=== PATIENT | male | born 1935 | race Caucasian/White ===

== ENCOUNTER → 2016-07-28 | Outpatient (REF) | LOC: ZLAB.WCH 11:18 | DX: Z01.89 Encounter for other specified special examinations (principal) ==

== ENCOUNTER → 2016-08-10 | Outpatient (REF) ==
[2016-08-10 16:22] LABS: TOTAL IRON BINDING CAPACITY 275 ug/dL (261-462)
[2016-08-10 16:47] LABS: FERRITIN 101 ng/mL (18-464)
== END ==
LOC: ZLAB.WCH 15:55
PROVIDERS: Internal Medicine
DX: Z01.89 Encounter for other specified special examinations (principal)

== ENCOUNTER → 2016-10-08 | Outpatient (REF) | LOC: ZLAB.WCH 10:27 | DX: Z01.89 Encounter for other specified special examinations (principal) ==

== ENCOUNTER → 2017-04-01 | Outpatient (REF) | LOC: ZLAB.WCH 18:12 | DX: Z01.89 Encounter for other specified special examinations (principal) ==

== ENCOUNTER → 2017-12-09 | Outpatient (REF) ==
[2017-12-09 16:56] LABS: PSA-TOTAL 1.98 ng/mL (0-4)
[2017-12-09 17:01] LABS: THYROID STIMULATING HORMONE 3.31 uIU/mL (0.465-4.680)
== END ==
LOC: ZLAB.WCH 16:04
PROVIDERS: Internal Medicine
DX: Z01.89 Encounter for other specified special examinations (principal)
CPT/HCPCS: G0103

== ENCOUNTER 2020-07-20 08:18 | Inpatient (IN) | payer MEDICARE, BC ==
[~2020-07-20] VITALS: Ht 180.3 cm; Wt 82.5 kg
--- NOTE | 2020-07-20 10:00 | NUR ---
Pt arrived to medical unit room 318 at 0930. Oriented to room, admission assessments and med rec updated. 20G IV started to right AC. at bedside at this time.
[2020-07-20] MEDS ORDERED: NORVASC 10MG10 MG PO (10:20)
[2020-07-20] MEDS ORDERED: CALCITRIOL PO (10:21)
[2020-07-20] MEDS ORDERED: KLONOPIN 0.5MG0.5 MG PO (10:21)
[2020-07-20] MEDS ORDERED: CATAPRES-TTS 30.3 MG TD (10:22)
[2020-07-20] MEDS ORDERED: CYANOCOBAL1000 MCG/1 IM (10:23)
[2020-07-20] MEDS ORDERED: LASIX 20MG TABL20 MG PO (10:24)
[2020-07-20] MEDS ORDERED: AMARYL 2MG T2 MG/TAB PO (10:24)
[2020-07-20] MEDS ORDERED: TOPROL XL 25MG25 MG PO (10:25)
[2020-07-20] MEDS ORDERED: PROBIOTIC BLEN1 EACH PO (10:26)
[2020-07-20] MEDS ORDERED: CRESTOR20 MG PO ×2 (10:27→10:28)
[2020-07-20] MEDS ORDERED: TEMOVATE0.05% TP (10:29)
[2020-07-20] MEDS ORDERED: ZOLOFT 50MG50 MG PO (10:29)
[2020-07-20 10:37] VITALS: BP 166/70; PULSE 68; TEMP 98
[2020-07-20 11:26] LABS: BASO # 0.1 (0.0-0.2); BASO % 1.1 % (0.0-2.0); EOS # 0.1 (0.0-0.7); EOS % 1.7 % (0-4.0); GRAN # 3.7 (1.4-6.5); GRAN % 68.9 % (42.2-75.2); HEMATOCRIT 26.1 % (42.0-52.0); HEMOGLOBIN 8.5 g/dl (13.5-18.0); LYMPH # 1.2 (1.2-3.4); LYMPH % 21.5 % (20.0-51.0); MEAN CELL VOLUME 90 fl (80.0-100.0); MEAN CORPUSCULAR HEMOGLOBIN 29 pg (27.0-31.0); MEAN CORPUSCULAR HGB CONC 33 g/dl (33.0-37.0); MEAN PLATELET VOLUME 10.1 fl (7.4-10.4); MONO # 0.4 (0.1-0.6); MONO % 6.6 % (1.7-9.3); PLATELET COUNT 178 K/mm3 (130-400); RED BLOOD COUNT 2.91 M/mm3 (4.20-5.60); REDCELL DISTRIBUTION WIDTH-CV 14.4 % (11.5-14.5)
[2020-07-20 11:28] LABS: INR 1.1 (0.8-3.0); PROTHROMBIN TIME 12.3 SECONDS (9.7-12.8)
[2020-07-20 11:31] LABS: ALBUMIN 3.6 gm/dL (3.5-5.0); BILIRUBIN,TOTAL 0.2 mg/dL (0.0-1.0); CALCIUM 6.6 mg/dL (8.4-10.2); CREATININE, serum 8.46 (0.66-1.25); POTASSIUM 4.9 mmol/L (3.4-5.0); TOTAL PROTEIN 6.8 gm/dL (6.4-8.2)
--- NOTE | 2020-07-20 13:36 | NUR ---
Tuberculin PPD 5 units to left forearm with wheal formation. Pt. denies knowledge of any TB exposure; reports no known family members w/TB. Reports does not remember ever having a TB skin test in past. Acknowledges was in the .
[2020-07-20 13:47] VITALS: BP 160/64
[2020-07-20 15:39] VITALS: BP 157/57; PULSE 61; TEMP 98
[2020-07-20 19:27] VITALS: BP 160/60; PULSE 66; TEMP 97.6
--- NOTE | 2020-07-20 20:00 | NUR ---
Assessment complete. Patient is alert and oriented with no complaints of pain. Bilater lower extremity edema is present and is non-pitting. Lungs are clear, HR normal/regular. Abdomen is rounded with audible bowel sounds. Bumex gtt infusing into right a/c IV. Patient states he has had a "rash" all over his body for 7 months that is getting better and which doctors are aware of; Healing rash is observed on patient's left morrison and forearm, back of head and on various other areas of the body; Patient states it is itchy at times. LUE is restricted with pink band. Call light in reach.
[2020-07-20 23:25] VITALS: BP 156/58; PULSE 64; TEMP 97.8
[2020-07-21] VITALS (9 sets, daily range): BP systolic 165–193; BP diastolic 67–76; PULSE 60–77; TEMP 97.2–98.4
--- NOTE | 2020-07-21 03:11 | NUR ---
Received report from [employer].
--- NOTE | 2020-07-21 06:19 | NUR ---
Patient had been asleep most of the night. He would call if he needs to go to the bathroom. Bumex drip infusing at 5ml/hr.
[2020-07-21 06:20] LABS: BASO % 0.6 % (0.0-2.0); EOS # 0.1 (0.0-0.7); GRAN # 4.8 (1.4-6.5); GRAN % 69.7 % (42.2-75.2); LYMPH # 1.4 (1.2-3.4); LYMPH % 20.9 % (20.0-51.0); MEAN CELL VOLUME 89 fl (80.0-100.0); MEAN CORPUSCULAR HGB CONC 33 g/dl (33.0-37.0); MEAN PLATELET VOLUME 10.5 fl (7.4-10.4); MONO # 0.5 (0.1-0.6); MONO % 7.5 % (1.7-9.3); PLATELET COUNT 201 K/mm3 (130-400); RED BLOOD COUNT 3.12 M/mm3 (4.20-5.60); REDCELL DISTRIBUTION WIDTH-CV 14.3 % (11.5-14.5)
[2020-07-21 06:21] LABS: HEMATOCRIT 27.9 % (42.0-52.0); HEMOGLOBIN 9.1 g/dl (13.5-18.0); MEAN CORPUSCULAR HEMOGLOBIN 29 pg (27.0-31.0)
[2020-07-21 06:31] LABS: ALBUMIN 3.5 gm/dL (3.5-5.0); CALCIUM 6.6 mg/dL (8.4-10.2); CREATININE, serum 8.16 (0.66-1.25); PHOSPHOROUS 8.3 mg/dL (2.5-4.5); POTASSIUM 4.5 mmol/L (3.4-5.0)
--- NOTE | 2020-07-21 12:45 | NUR ---
Manager Placement met with patient to discuss discharge planning. Patient lives alone in [place] and sees Dr. Veras for primary care. Patient obtains medications from [facility] with no difficulties and does not use any DME. Patient states he has DPOA-HC completed which designates his son, Jagjit and his grandson, Hari (ph#[phone]). Patient states his girlfriend, Dee Llanos will be bringing a copy in later today. Patient reports he is normally independent with ADLS. PT/OT have been ordered for patient. SW contacted patient's son, Hari to review discharge plan. Hari has no questions or concerns at this time. Discharge plan will be to return home.
--- NOTE | 2020-07-21 14:00 | NUR ---
Primary nurse was assisted with [id number] patient care by [employer] ADM student Mirna Hutchison and [employer] AD[employer] instructor Jenny Cruz MSN, RN.
--- NOTE | 2020-07-21 20:00 | NUR ---
Assessment complete. PAtient is alert and oriented with no complaints of pain. He has a left upper extremity restriction for fisutla placement tomorrow. Bilateral lower extremity edema is noted but is mild and non-pitting. Lung sounds clear, abdomen is soft. No new concerns. Call light in reach.
[2020-07-22] VITALS (13 sets, daily range): BP systolic 135–185; BP diastolic 54–74; PULSE 56–71; TEMP 98–99
--- NOTE | 2020-07-22 06:08 | NUR ---
Patient's BG is 60 at this time. Patient provided with apple juice. Will recheck in 15 minutes. Patient is asymptomatic of hypogylemia.
[2020-07-22 06:22] LABS: BASO % 0.5 % (0.0-2.0); EOS # 0.1 (0.0-0.7); EOS % 0.8 % (0-4.0); GRAN # 4.3 (1.4-6.5); GRAN % 64.4 % (42.2-75.2); LYMPH # 1.7 (1.2-3.4); LYMPH % 25.2 % (20.0-51.0); MEAN CELL VOLUME 89 fl (80.0-100.0); MEAN CORPUSCULAR HGB CONC 33 g/dl (33.0-37.0); MEAN PLATELET VOLUME 10.5 fl (7.4-10.4); MONO # 0.6 (0.1-0.6); MONO % 8.9 % (1.7-9.3); PLATELET COUNT 200 K/mm3 (130-400); RED BLOOD COUNT 3.15 M/mm3 (4.20-5.60); REDCELL DISTRIBUTION WIDTH-CV 14.2 % (11.5-14.5)
[2020-07-22 06:25] LABS: HEMOGLOBIN 9.3 g/dl (13.5-18.0); MEAN CORPUSCULAR HEMOGLOBIN 30 pg (27.0-31.0)
--- NOTE | 2020-07-22 06:31 | NUR ---
BG NOW 78. PATIENT DOES NOT FEEL ANY SYMPTOMS OF HYPOGLYCEMIA.
[2020-07-22 06:40] LABS: ALBUMIN 3.4 gm/dL (3.5-5.0); CALCIUM 7.2 mg/dL (8.4-10.2); CREATININE, serum 8.08 (0.66-1.25); PHOSPHOROUS 7.5 mg/dL (2.5-4.5); POTASSIUM 4.5 mmol/L (3.4-5.0)
--- NOTE | 2020-07-22 10:07 | NUR ---
Initial visit; Patient and his thanked Corporate Controller for stopping and offering spiritual care.
--- NOTE | 2020-07-22 12:32 | NUR ---
Patient went down for fistula placement at 1130. Souleymane almazan.
--- NOTE | 2020-07-22 14:00 | NUR ---
Primary nurse was assisted with [id number] patient care by [facility] Hutchison and [facility] instructor Jenny Cruz MSN, RN.
--- NOTE | 2020-07-22 17:26 | NUR ---
Patient tolerated his 1st HD tx today, no fluid removal. Next planned HD tx for tomorrow, Saturday07/23/20 with no scheduled time as of now.
--- NOTE | 2020-07-22 19:34 | NUR ---
Patient had dialysis cath and a fistula placed today. Patient had dialysis following procedure. Tolerated well, no fluid pulled. Patient is resting in bed at this time. Patient does not C/O any pain or discomfort at this time. Call light within reach.
[2020-07-22 21:41] LABS: HEPATITIS B SURFACE ANTIBODY <2.0 (()); HEPATITIS B SURFACE ANTIGEN Negative (Negative); HEPATITIS C VIRUS ANTIBODY Negative (Negative)
--- NOTE | 2020-07-23 01:22 | NUR ---
1999- ASSESSMENT COMPLETE. POC DISCUSSED. FISTUAL AND DIAYLSIS CATH PLACED TO DAY . PT DENIES ANY PAIN OR DISCOMFORT. UP AMBULATING IN ROOM. PM MEDS REVIEWED. NEEDS MET.
[2020-07-23 03:45] VITALS: BP 120/53; PULSE 64; TEMP 99.3
--- NOTE | 2020-07-23 06:05 | NUR ---
RESTED THROUGH THE NIGHT WITHOUT INCIDENT. SISTER CALLS FOR UPDATE THIS AM. NEEDS MET.
[2020-07-23 06:59] LABS: BASO # 0.1 (0.0-0.2); BASO % 0.8 % (0.0-2.0); EOS # 0.2 (0.0-0.7); EOS % 3.1 % (0-4.0); GRAN # 4.5 (1.4-6.5); LYMPH # 1.2 (1.2-3.4); MEAN CELL VOLUME 90 fl (80.0-100.0); MEAN CORPUSCULAR HGB CONC 33 g/dl (33.0-37.0); MEAN PLATELET VOLUME 10.5 fl (7.4-10.4); MONO # 0.5 (0.1-0.6); MONO % 7.8 % (1.7-9.3); PLATELET COUNT 196 K/mm3 (130-400); RED BLOOD COUNT 3.09 M/mm3 (4.20-5.60); REDCELL DISTRIBUTION WIDTH-CV 14.4 % (11.5-14.5)
[2020-07-23 07:00] LABS: HEMATOCRIT 27.7 % (42.0-52.0); MEAN CORPUSCULAR HEMOGLOBIN 29 pg (27.0-31.0)
[2020-07-23 07:04] LABS: ALBUMIN 3.2 gm/dL (3.5-5.0); CALCIUM 7.2 mg/dL (8.4-10.2); CREATININE, serum 6.55 (0.66-1.25); PHOSPHOROUS 6.2 mg/dL (2.5-4.5); POTASSIUM 4.6 mmol/L (3.4-5.0)
--- NOTE | 2020-07-23 07:07 | NUR ---
Patient resting in bed at this time. Does not C/O any pain or discomfort. Patient denies any needs. Will continue to monitor. Call light within reach.
[2020-07-23 07:17] VITALS: BP 157/69; PULSE 73; TEMP 98.8
--- NOTE | 2020-07-23 11:04 | NUR ---
Patient resting in his chair at this time. Patient's girlfriend will be at the bedside shortly. Dialysis scheduled for 1430 today. Patient denies any pain, discomfort, or needs at this time. Will continue to monitor. Call light within reach.
[2020-07-23 11:08] VITALS: BP 135/69; PULSE 71; TEMP 98.3
--- NOTE | 2020-07-23 15:13 | NUR ---
DC'd right AC IV per doctors orders. Patient transported via wheelchair to dialysis.
[2020-07-23 19:47] VITALS: BP 173/60; PULSE 70; TEMP 98.2
[2020-07-23 23:13] VITALS: BP 126/52; PULSE 67; TEMP 98.4
[2020-07-24 03:54] VITALS: BP 122/42; PULSE 67; TEMP 99.8
--- NOTE | 2020-07-24 05:15 | NUR ---
RESTING QUIETLY/SLEEPING. NO C/O PAIN. NO N/V. NO NEEDS VOICED, CALL LIGHT IN REACH.
[2020-07-24 06:24] LABS: BASO # 0.1 (0.0-0.2); BASO % 0.7 % (0.0-2.0); EOS # 0.2 (0.0-0.7); EOS % 3.3 % (0-4.0); GRAN # 4.5 (1.4-6.5); LYMPH # 1.3 (1.2-3.4); LYMPH % 19.8 % (20.0-51.0); MEAN CELL VOLUME 91 fl (80.0-100.0); MEAN CORPUSCULAR HGB CONC 32 g/dl (33.0-37.0); MEAN PLATELET VOLUME 10.6 fl (7.4-10.4); MONO # 0.6 (0.1-0.6); MONO % 8.9 % (1.7-9.3); PLATELET COUNT 179 K/mm3 (130-400); RED BLOOD COUNT 2.84 M/mm3 (4.20-5.60)
[2020-07-24 06:26] LABS: HEMATOCRIT 25.9 % (42.0-52.0); HEMOGLOBIN 8.4 g/dl (13.5-18.0); MEAN CORPUSCULAR HEMOGLOBIN 30 pg (27.0-31.0)
[2020-07-24 06:32] LABS: ALBUMIN 3.2 gm/dL (3.5-5.0); CALCIUM 7.6 mg/dL (8.4-10.2); CREATININE, serum 5.35 (0.66-1.25); PHOSPHOROUS 5.5 mg/dL (2.5-4.5); POTASSIUM 4.5 mmol/L (3.4-5.0)
[2020-07-24 07:04] VITALS: BP 144/43; PULSE 74; TEMP 100.3
[2020-07-24 11:10] VITALS: BP 140/52; PULSE 74; TEMP 98.4
--- NOTE | 2020-07-24 13:33 | NUR ---
Pt compliant with all medications given. His came and visited today for a few hours. Patient spent the day in his chair watching TV and relaxing. He is independent and able to ambulate himself and get to the bathroom with little or no assistance. He eats almost all of his food and is understanding of what is going on. He has been alert and oriented all shift.
--- NOTE | 2020-07-24 14:33 | NUR ---
[facility] charting reviewed by this instructor, agree with findings and charting.
[2020-07-24 15:21] VITALS: BP 149/59; PULSE 73; TEMP 99.8
--- NOTE | 2020-07-24 18:10 | NUR ---
Report received from [employer] student RN. Pt doing well, eating supper in chair at side of bed, denies needs, will give bedside shift report to nightshift nurse who will resume care.
[2020-07-24 20:13] VITALS: BP 154/57; PULSE 72; TEMP 99.4
[2020-07-25 00:25] VITALS: BP 154/53; PULSE 73; TEMP 98.6
[2020-07-25 04:13] VITALS: BP 107/42; PULSE 69; TEMP 98.6
[2020-07-25 06:08] LABS: BASO # 0.1 (0.0-0.2); BASO % 0.5 % (0.0-2.0); EOS # 0.1 (0.0-0.7); EOS % 0.7 % (0-4.0); GRAN # 7.3 (1.4-6.5); GRAN % 76.2 % (42.2-75.2); LYMPH # 1.2 (1.2-3.4); LYMPH % 12.7 % (20.0-51.0); MEAN CELL VOLUME 92 fl (80.0-100.0); MEAN CORPUSCULAR HGB CONC 32 g/dl (33.0-37.0); MEAN PLATELET VOLUME 10.6 fl (7.4-10.4); MONO # 0.9 (0.1-0.6); MONO % 9.5 % (1.7-9.3); PLATELET COUNT 183 K/mm3 (130-400); RED BLOOD COUNT 2.87 M/mm3 (4.20-5.60); REDCELL DISTRIBUTION WIDTH-CV 14.1 % (11.5-14.5)
[2020-07-25 06:22] LABS: HEMOGLOBIN 8.4 g/dl (13.5-18.0); MEAN CORPUSCULAR HEMOGLOBIN 29 pg (27.0-31.0)
[2020-07-25 06:23] LABS: HEMATOCRIT 26.4 % (42.0-52.0)
[2020-07-25 06:26] LABS: ALBUMIN 3.5 gm/dL (3.5-5.0); CALCIUM 8.1 mg/dL (8.4-10.2); CREATININE, serum 6.36 (0.66-1.25); PHOSPHOROUS 5.5 mg/dL (2.5-4.5); POTASSIUM 4.5 mmol/L (3.4-5.0)
--- NOTE | 2020-07-25 07:09 | NUR ---
Patient resting in bed at this. Patient denies any pain, discomfort, or needs at this time. Will continue to monitor. Call light within reach.
[2020-07-25 08:01] VITALS: BP 135/47; PULSE 71; TEMP 99.8
[2020-07-25] MEDS ORDERED: PHOSLO667 MG PO (11:33)
[2020-07-25] MEDS ORDERED: AMARYL 2MG T2 MG/TAB PO (11:36)
--- NOTE | 2020-07-25 12:01 | NUR ---
Patient transported to dialysis via wheelchair at 1100.
--- NOTE | 2020-07-25 13:29 | NUR ---
Patient has been compliant with medications and treatment. He went in for dialysis before noon and was prepared and told how it would be a longer process than what he has been used to before. Patient refused hygiene at 1000.
--- NOTE | 2020-07-25 14:22 | NUR ---
[facility] assessment and charting reviewed by this instructor, agree with documentation.
--- NOTE | 2020-07-25 15:19 | NUR ---
Patient tolerated HD tx, removed 700 mL of fluid.
--- NOTE | 2020-07-25 19:10 | NUR ---
Patient returned from dialysis at 1530. Patient given discharge instructions and education. Patient and Girlfriend deny any questions or concerns. Vital signs stable at discharge. BP 135/47, Pulse 71, Respirations 18, SPO2 96%, and Temp 99.8. Patient A&O and excited to discharge. Patient was experiencing discomfort in his ankle from bumping it last night. Dr. Alarcon notified. Instructions given were to continue taking tylenol and elevate. No other pain or discomfort noted. Patient escorted from building by [facility] staff via wheelchair.
[2021-01-11] MEDS ORDERED: KLONOPIN 0.5MG0.5 MG PO (08:23)
[2021-01-11] MEDS ORDERED: CATAPRES-TTS 30.3 MG TD (08:24)
[2021-01-11] MEDS ORDERED: LASIX 40MG TABL40 MG PO (08:25)
[2021-01-11] MEDS ORDERED: AMARYL 2MG T2 MG/TAB PO (08:25)
[2021-01-11] MEDS ORDERED: TOPROL XL 25MG25 MG PO (08:26)
[2021-01-11] MEDS ORDERED: CRESTOR20 MG PO (08:27)
[2021-01-11] MEDS ORDERED: COZAAR 25MG25 MG/TAB PO (08:28)
[2021-01-11] MEDS ORDERED: TEMOVATE0.05% TP (08:28)
[2021-01-11] MEDS ORDERED: AURYXIA1 GM PO (08:30)
== END 2020-07-25 16:30 | disposition home or self-care (01) | DRG 674 ==
LOC: COL.LAB 08:18 → MEDICAL 08:19
PROVIDERS: ADMIT Internal Medicine Nephrology
PROC: 5A1D70Z Performance of Urinary Filtration, Intermittent, Less than 6 Hours Per Day (ICD-10-PCS; 2020-07-22)
PROC: 0HB6XZZ Excision of Back Skin, External Approach (ICD-10-PCS; 2020-07-22)
PROC: 03180ZD Bypass Left Brachial Artery to Upper Arm Vein, Open Approach (ICD-10-PCS; principal; 2020-07-25)
PROC: 0JH63XZ Insertion of Tunneled Vascular Access Device into Chest Subcutaneous Tissue and Fascia, Percutaneous Approach (ICD-10-PCS; 2020-07-25)
PROC: 02HV33Z Insertion of Infusion Device into Superior Vena Cava, Percutaneous Approach (ICD-10-PCS; 2020-07-25)
DX: N17.9 Acute kidney failure, unspecified (principal); E23.0 Hypopituitarism; E87.2 Acidosis; E11.22 Type 2 diabetes mellitus with diabetic chronic kidney disease; E11.21 Type 2 diabetes mellitus with diabetic nephropathy; F32.9 Major depressive disorder, single episode, unspecified; E78.5 Hyperlipidemia, unspecified; I12.9 Hypertensive chronic kidney disease with stage 1 through stage 4 chronic kidney disease, or unspecified chronic kidney disease; N18.4 Chronic kidney disease, stage 4 (severe); R60.1 Generalized edema; D63.1 Anemia in chronic kidney disease; D50.9 Iron deficiency anemia, unspecified; D18.01 Hemangioma of skin and subcutaneous tissue; E83.39 Other disorders of phosphorus metabolism; E83.51 Hypocalcemia; Z79.84 Long term (current) use of oral hypoglycemic drugs; Z87.891 Personal history of nicotine dependence
CPT/HCPCS: C1750; J0690; J1644; J1815; J2704; J2916; J3010; J7030; Q5106

== ENCOUNTER → 2021-01-11 | Outpatient (CLI) | payer MEDICARE, BC ==
--- NOTE | 2021-01-09 12:54 | NUR ---
SPOKE TO BROTHER AND HE STATES THAT PT IS IN [place]. TOLD BROTHER THAT I WOULD CALL BACK SATURDAY
--- NOTE | 2021-01-10 08:29 | NUR ---
no voice mail. called and lmom with his adjuster electrical contacts, fortunato bashir
[~2021-01-11] VITALS: Ht 180.3 cm; Wt 82.2 kg
[~2021-01-11] MED LIST: AMARYL 2MG T2 MG/TAB PO; AURYXIA1 GM PO; CALCITRIOL PO; CATAPRES-TTS 30.3 MG TD; COZAAR 25MG25 MG/TAB PO; CRESTOR20 MG PO; CYANOCOBAL1000 MCG/1 IM; KLONOPIN 0.5MG0.5 MG PO; LASIX 20MG TABL20 MG PO; LASIX 40MG TABL40 MG PO; NORVASC 10MG10 MG PO; PHOSLO667 MG PO; PROBIOTIC BLEN1 EACH PO; TEMOVATE0.05% TP; TOPROL XL 25MG25 MG PO; ZOLOFT 50MG50 MG PO
[2021-01-11 08:30] VITALS: BP 175/61; PULSE 70; TEMP 99
[2021-01-11 09:30] VITALS: BP 164/64; PULSE 65
== END ==
LOC: COL.RAD 08:09
DX: Z49.01 Encounter for fitting and adjustment of extracorporeal dialysis catheter (principal); N18.6 End stage renal disease